=== PATIENT | male | born 1985 | race Caucasian/White ===

== ENCOUNTER 2019-04-04 06:54 | Emergency (ER) | payer BC, SELFPAY ==
--- NOTE | ~2019-04-04 | XR_ITS ---
XR chest 2V DATE: 04/04/2019 07:55 INDICATION: Anterior chest pain for 5 days. TECHNIQUE: PA and lateral views COMPARISON: None FINDINGS: Normal heart size. No hilar or mediastinal enlargement. No pulmonary infiltrate or consolid ation, pleural effusion or pulmonary vascular congestion or pneumothorax. IMPRESSION: No active cardiopulmonary disease Reviewed, dictated and finalized at location A. ALT PAVER OPERATOR
[2019-04-04 06:57] VITALS: BP 142/97; PULSE 80; RESP 21; TEMP 36.4; O2SAT 99
[2019-04-04 07:01] VITALS: PULSE 78; O2SAT 100
--- NOTE | 2019-04-04 07:05 | ECG_ITS ---
Measurements Intervals [place] Rate: 70 P: 28 VT: 136 QRS: -27 QRSD: 119 T: 5 QT: 380 QTc: 412 Interpretive Statements SINUS RHYTHM INTRAVENTRICULAR CONDUCTION DELAY DELAYED PRECORDIAL R/S TRANSITION BORDERLINE T WAVE ABNORMALITY- INFERIOR LEADS BASELINE ARTIFACT- II, III BORDERLINE ECG Electronically Signed On 04-04-2019 8:41:46 [employer] by Dat Quinn D.O.
--- NOTE | 2019-04-04 07:07 | ED.CHESTPAIN ---
HPI - Chest Pain General Chief Complaint: Chest Pain Stated Complaint: chest pain Time Seen by Provider: 04/04/19 06:58 Source: patient Mode of arrival: ambulatory Limitations: no limitations History of Present Illness HPI narrative: 33-year-old male Complains of precordial pains which have been present for a couple weeks Symptoms began before he traveled to [place] and have continued after he returned He notes that the pains are fleeting lasting a second or 2, sharp, and coming groups of 2 or 3 He cannot trigger them by movements respirations or exertion He is also had some soreness but no injury and no swelling to his right thigh No nausea or vomiting no palpitations no cough no fever This morning he also was experiencing upper back pain which is what brought him to the hospital He is currently pain-free He has a past medical history of mitral valve prolapse or regurgitation His primary care doctor is Dr. Wheeler at [facility] He is chronically prescribed Klonopin and as needed propranolol He smokes cigarettes, he is not diabetic, he has no history of elevated cholesterol He was treated for bronchitis about 2 months ago MD complaint: chest pain Pertinent past history: other Onset (ago): week(s) Timing of current episode: episodic and now resolved Pain radiation: other Severity: mild Quality: sharp Relieving factors: nothing Exacerbating factors: nothing Risk Factors Coronary artery disease risk factors: smoking history Related Data Home Medications Medication Instructions Recorded Confirmed buspirone 5 mg PO BID 02/28/19 02/28/19 clonazepam 0.5 mg PO DAILY 02/28/19 02/28/19 cyclobenzaprine 10 mg PO HS 02/28/19 02/28/19 propranolol 20 mg PO DAILY 02/28/19 02/28/19 Allergies Allergy/AdvReac Type Severity Reaction Status Date / Time meperidine Allergy Unknown Swelling Verified 04/04/19 07:01 of Lip/Tongue/Throat Review of Systems Review of Systems: All systems reviewed & are unremarkable except as noted in HPI and below Constitutional: Constitutional: Denies chills and Denies fever(s) Eyes: Eyes: Reports no additional eye complaints ENT: Denies nasal congestion and Denies sore throat Cardiovascular: Cardiovascular: Reports no additional cardiovascular complaints Respiratory: Respiratory: Reports no additional respiratory complaints Gastrointestinal: Gastrointestinal: Denies abdominal pain and Denies diarrhea Genitourinary: Genitourinary: Reports no additional male genitourinary complaints Musculoskeletal: Musculoskeletal: Reports myalgias and Reports muscle cramps Neurologic: Denies numbness and Denies weakness Psychiatric: Psychiatric: Reports anxiety Hematologic/Lymphatic: Hematologic/Lymphatic: Denies easy bleeding and Denies easy bruising PMFSH Family History Family History (Updated 03/15/18 @ 15:20 by DOCTOR UNKNOWN) Mother Family history of elevated blood lipids Other Diabetes mellitus Family history of arthritis Family history of osteoporosis Hypertension Social History Social History Smoking status: Heavy tobacco smoker Smoking end date: 03/06/14 Alcohol intake: current Exam Const: General: healthy appearing, no acute distress and well developed Nutritional Appearance: well nourished Orientation/consciousness: patient oriented x3 (alert) and Other orientation findings (Alert) Limitations: no limitations HENMT: Head: normocephalic and atraumatic Ears: external ears normal General nose exam: No nasal discharge present and no epistaxis Face and sinus: face symmetric Mouth: Yes lip normal, Yes tongue normal and Yes moist mucous membranes Throat: other (No exudate, no erythema) Eyes: Conjunctivae: conjunctivae normal Sclera: sclerae normal EOM: EOMs intact bilaterally Neck: Neck: full ROM, no lymphadenopathy and supple Thyroid: thyroid normal Chest: Chest palpation & inspection: no tenderness Resp: Effort & Ins
[2019-04-04 07:42] LABS: Basophils Percent Auto 0.7 % (0.2-1.2); Eosinophils Absolute Auto 0.2 K/mm3 (0-0.3); Eosinophils Percent Auto 3.9 % (0-4.4); Hematocrit 45.9 % (42.0-52.0); Hemoglobin 15.3 g/dL (14.0-18.0); Immature Granulocyte Absolute 0.04 K/mm3 (0.00-0.031); Immature Granulocyte Percent A 0.7 % (0-0.5); Lymphocytes Absolute Auto 1.71 K/mm3 (0.9-3.2); Lymphocytes Percent Auto 29.2 % (18.3-44.2); Mean Corpuscular HGB Conc 33.3 g/dl (32-36); Mean Corpuscular Hemoglobin 29.5 pg (26-34); Mean Corpuscular Volume 88.4 fl (80-100); Mean Platelet Volume 11.9 fl (7.4-10.4); Monocytes Absolute Auto 0.5 K/mm3 (0.1-0.6); Neutrophils Absolute Auto 3.3 K/mm3 (1.3-6.7); Neutrophils Percent Auto 56.5 % (45.5-73.1); Platelet Count Result 183 k/mm3 (150-375); Red Blood Count 5.19 M/mm3 (4.6-6.20); Red Cell Distribution Width 12.2 % (11.5-14.5); White Blood Count 5.9 K/mm3 (4.5-10.0)
[2019-04-04 07:53] LABS: Blood Urea Nitrogen 15 mg/dL (9-20); Calcium 9.1 mg/dL (8.4-10.2); Carbon Dioxide 24 mmol/L (22-30); Chloride 101 mmol/L (98-107); Estimated CRCL calculation 122 ml/min; Estimated Glomerular Filt Rate > 60; Glucose 117 mg/dL (75-110); Potassium 4.1 mmol/L (3.4-5.0); Sodium 137 mmol/L (137-145)
[2019-04-04 07:54] LABS: D Dimer 0.39 ug/mL (<0.48)
[2019-04-04 07:55] LABS: Cholesterol 198 mg/dL (0-200); HDL Direct 48 mg/dL; Triglycerides 232 mg/dL (<150)
[2019-04-04 08:05] LABS: LDL Cholesterol Direct 111 mg/dL; Troponin I < 0.012 ng/mL (0.000-0.034)
[2019-04-04] MEDS: KETOROLAC 30 MG/ML VIAL (*BKC) IV PUSH (08:17)
[2019-04-04 08:45] VITALS: BP 123/84; PULSE 76; RESP 19; O2SAT 97
== END 2019-04-04 08:47 | disposition home or self-care (01) ==
PROVIDERS: Emergency Provider Emergency Medicine
DX: R07.89 Other chest pain (principal); F17.210 Nicotine dependence, cigarettes, uncomplicated; I45.9 Conduction disorder, unspecified; R94.31 Abnormal electrocardiogram [ECG] [EKG]
CPT/HCPCS: 36415; 71046; 80048; 80061; 84484; 85025; 85380; 93005; 96374; 99284; J1885

== ENCOUNTER → 2019-05-02 14:29 | Outpatient (CLI) | payer BC, SELFPAY ==
--- NOTE | ~2019-05-02 | MR_ITS ---
EXAMINATION: MR lumbar spine wo con DATE: 05/02/2019 15:02 INDICATION: Chronic right-sided low back pain without sciatica. TECHNIQUE: Magnetic resonance imaging (MRI) of the lumbar spine was performed without intravenous con trast. Sequences included sagittal T2-weighted FSE, sagittal T2-weighted FS FSE, sagittal T1-weighted FSE, and axial T2-weighted FSE. COMPARISON: None FINDINGS: Bone alignment is normal. Vertebral body heights are normal. There is mildly decreased disc height at L5-S1. The distal spinal cord signal intensity is normal. The conus medullaris is at L2-L3 . The following disc levels are specifically discussed: L1-L2: The disc does not extend beyond the endplate margin. There is mild right facet joint osteoarth ritis. There is no neural foraminal stenosis. There is no central canal stenosis. L2-L3: The disc does not extend beyond the endplate margin. There is mild left facet joint osteoarthr itis. There is no neural foraminal stenosis. There is no central canal stenosis. L3-L4: The disc does not extend beyond the endplate margin. There is mild bilateral facet joint osteo arthritis. There is no neural foraminal stenosis. There is no central canal stenosis. L4-L5: The disc does not extend beyond the endplate margin. There is mild bilateral facet joint osteo arthritis. There is no neural foraminal stenosis. There is no central canal stenosis. L5-S1: There is a left central extrusion with mass effect on left S1 nerve root in left lateral reces s. There is no facet joint osteoarthritis. There is mild left neural foraminal stenosis. There is mil d central canal stenosis. IMPRESSION: 1. Mild lumbar spondylosis. Of note, an extrusion at L5-S1 exerts mass effect on the left S1 nerve ro ot. Correlate clinically for muscle weakness of plantar flexion, sensory change of the lateral foot a nd small toe, and depressed ankle reflex. Reviewed, dictated and finalized at location A. NG EXAMINER IMPRESSION: 1. Mild lumbar spondylosis. Of note, an extrusion at L5-S1 exerts mass effect o n the left S1 nerve root. Correlate clinically for muscle weakness of plantar f lexion, sensory change of the lateral foot and small toe, and depressed ankle r eflex.
== END ==
PROVIDERS: Visit Provider Family Medicine
DX: G89.29 Other chronic pain (principal); M47.896 Other spondylosis, lumbar region; M51.26 Other intervertebral disc displacement, lumbar region
CPT/HCPCS: 72148

== ENCOUNTER 2019-08-17 01:26 | Outpatient (CLI) | payer BC, SELFPAY ==
[2019-08-17 16:42] LABS: SARS-CoV-2 RNA PCR Negative
== END 2019-08-17 01:27 | disposition home or self-care (01) ==
LOC: ANHCOVIDDT 01:26
PROVIDERS: PCP Family Medicine; Visit Provider Internal Medicine Cardiovascular Disease
DX: Z20.828 Contact with and (suspected) exposure to other viral communicable diseases (principal); Z01.812 Encounter for preprocedural laboratory examination
CPT/HCPCS: 87635; C9803; U0003

== ENCOUNTER 2019-08-20 05:29 | Day surgery (SDC) | payer BC, SELFPAY ==
[2019-08-19 13:48] VITALS: BMI 32.6
[2019-08-20] VITALS (14 sets, daily range): BP systolic 110–152; BP diastolic 41–110; PULSE 83–105; RESP 13–22; TEMP 36.6–37.1; O2SAT 96–100
--- NOTE | 2019-08-20 07:48 | SUR.PREOP ---
0735-pt presents to the [facility] for a KATY. No distress noted. AOx3. Questions answered and verbalized understanding. Consent signed. PIV started. Will continue to monitor.
--- NOTE | 2019-08-20 09:24 | P.PCNTEE_ITS ---
KATY TransEsophageal Echocardiogram Date of procedure: 08/20/19 Indications: Evaluate for possible intracardiac mass as suspected on surface echocardiography from 08/07/2019 Image Quality: Adequate Findings: PROCEDURES PERFORMED: 1. Multiplane transesophageal echocardiography with color flow and Doppler assessment 2. Moderate sedation- CPT code 90900 SEDATION: Midazolam 1 mg, Propofol 100 milligram IV in divided doses; start time 0857 , stop time 0910 , total [id number] time 17 minutes; Donal Zavaleta RN was trained observer for moderate sedation. PROCEDURE: After obtaining informed consent, patient was brought to the chest Pain [facility]. She was given lidocaine gel, followed by 2 sprays of benzocaine spray. Bite block was placed. Patient was positioned in the left lateral position. After adequate sedationl, transesophageal scope was advanced and multiplanar transesophageal echocardiography was performed with and without color flow and Doppler assessment. Patient's vitals were monitored throughout the procedure. Patient had copious secretions through the procedure and required sections at multiple times. Patient had erythema in the oropharynx wit hout any overt bleeding after the KATY. There were no immediate major procedure related complications. LEFT VENTRICLE: Normal LV size, mild LVH, normal LV systolic function, ejection fraction 60-65%. RIGHT VENTRICLE: Normal size and systolic function LEFT ATRIUM: Normal atrial size. A prominent ridge of tissue is seen between the left atrial appendage and left superior pulmonary vein consistent with warfarin/coumadin ridge . No left atrial appendage thrombus. RIGHT ATRIUM: Normal size ATRIAL SEPTUM: Normal; no evidence of shunt on color Doppler. MITRAL VALVE: Normal structure, no significant mitral regurgitation. AORTIC VALVE: Normal structure, trileaflet, no stenosis or regurgitation. TRICUSPID VALVE: Normal structure, no significant TR. Unable to assess RVSP. PULMONIC VALVE: Not well visualized PERICARDIUM: Normal, no significant pericardial effusion AORTA: Normal root size RHYTHM: Sinus rhythm Conclusions: 1. Normal LV size, mild LVH, normal LV systolic function, ejection fraction 60-65%. 2. Prominent ridge of tissue between left atrial appendage and left superior pulmonary vein consistent with warfarin/Coumadin ridge . No definite mass is seen in the left atrium. No evidence of left atrial appendage thrombus. Normal interatrial septum without a shunt on color Doppler. 3. Normal Doppler with normal valve structure and function.
--- NOTE | 2019-08-20 09:24 | WPDHPUPDATE1 ---
History and Physical Update Update Date/Time: 08/20/19 09:24 History and Physical has been reviewed, including an updated exam of the patient. There are NO changes in the patient's condition. Risks, benefits, and alternatives have been discussed and questions answered. Patient agrees to proceed with procedure.
--- NOTE | 2019-08-20 09:24 | WPDMODSED ---
Moderate Sedation Note-Pt Data Patient Data Allergies Allergy/AdvReac Type Severity Reaction Status Date / Time meperidine Allergy Unknown Swelling Verified 04/04/19 07:01 of Lip/Tongue/Throat Home Medications Medication Instructions Recorded Confirmed Type clonazepam 0.5 mg PO DAILY 02/28/19 08/19/19 History cyclobenzaprine 10 mg PO HS 02/28/19 08/19/19 History cetirizine [Zyrtec] 10 mg PO DAILY 08/19/19 08/19/19 History hydrocodone-acetaminophen 1 tablet PO Q6H PRN 08/19/19 08/19/19 History pregabalin [Lyrica] 75 mg PO HS 08/19/19 08/19/19 History Sedation/Anesthesia: No previous sedation/anesthesia problems (including family history). [facility] Family History Family History (Updated 03/15/18 @ 15:20 by DOCTOR UNKNOWN) Mother Family history of elevated blood lipids Other Diabetes mellitus Family history of arthritis Family history of osteoporosis Hypertension Social History Social History Smoking status: Heavy tobacco smoker Smoking end date: 03/06/14 Alcohol intake: current Gender identity (if verbalized by the patient): Male Mod Sed Physical Exam Physical Exam Pre Procedural Exam: Normal: Airway Hours since solid foods: 10 Hours since liquid intake: 10 Internal Medicine - PN: Obj Da Vital Signs Vital Signs: Vital Signs - 24 hr 08/20/19 07:50 08/20/19 08:45 08/20/19 08:55 Temperature 36.6 C Pulse Rate 94 87 85 Respiratory Rate 14 13 16 Blood Pressure 131/87 121/81 119/80 Pulse Oximetry 99 98 98 08/20/19 09:00 08/20/19 09:05 08/20/19 09:10 Temperature Pulse Rate 87 105 H 91 Respiratory Rate 13 18 17 Blood Pressure 113/41 L 152/110 H 131/87 Pulse Oximetry 100 100 100 ASA Classification/Sedation ASA Classification/Sedation Risks: Risks, benefits and alternatives explained and patient/family accepted plan for sedation. Patient re-evaluated immediately prior to sedation.
--- NOTE | 2019-08-20 09:47 | SUR.PHASEII ---
0930 pt states that his throat feels funny;assessed back of throat and pts uvula is swollen and red. Dr. Starks notified and at bedside, per Dr. Starks give pt ice chips and continue to monitor closely.
--- NOTE | 2019-08-20 10:20 | SUR.PHASEII ---
1015 called and spoke with Edna Dias TRANSFORMER STOCK CLERK, update given that pts uvula/throat remains swollen and red. Pt tolerating ice chips well. She will speak with Dr. Starks and get back to me prior to discharging pt.
--- NOTE | 2019-08-20 11:22 | SUR.PHASEII ---
1100 spoke with Edna Dias SUPPORT MERCHANDISER, we will continue to monitor pt and his throat/uvula redness/swelling, pt in no other distress at this time except he states his throat is still sore. Will order pt lunch to assure he tolerates swallowing food ok and Dr. Starks will reassess pt later. 1120 Dr. Starks at bedside assessing pt, states his throat/uvula looks better and pt may be discharged after he eats and tolerates lunch.
== END 2019-08-20 12:15 | disposition home or self-care (01) ==
PROVIDERS: PCP Family Medicine; Visit Provider Internal Medicine Cardiovascular Disease
PROC: (CPT 93312; principal; 2019-08-20 08:30)
DX: R93.1 Abnormal findings on diagnostic imaging of heart and coronary circulation (principal); R07.2 Precordial pain; F17.210 Nicotine dependence, cigarettes, uncomplicated
CPT/HCPCS: 87635; 93312; 93320; 93325; C9803; J2250; J2704; J2930; J3010; J7040; U0003

== ENCOUNTER 2019-08-21 11:23 | Emergency (ER) | payer BC, SELFPAY ==
[2019-08-21 11:33] VITALS: BP 127/81; PULSE 81; RESP 16; O2SAT 98
--- NOTE | 2019-08-21 11:40 | ED.GENADULT ---
HPI - General Adult General Chief complaint: Unspecified Stated complaint: throat pain Source: patient and RN notes reviewed Mode of arrival: ambulatory Limitations: no limitations History of Present Illness HPI narrative: 33-year-old male presents with concern for sore throat, difficulty swallowing after undergoing a transesophageal echocardiogram yesterday. Reports after the procedure yesterday he had a sore throat which worsened throughout the night and day. Reports today pain is an 8 out of 10, has difficulty swallowing anything other than liquid. Reports he has been taking ibuprofen without relief. Denies hemoptysis, stridor, dyspnea. Related Data Home Medications Medication Instructions Recorded Confirmed clonazepam 0.5 mg PO DAILY 02/28/19 08/19/19 cyclobenzaprine 10 mg PO HS 02/28/19 08/19/19 Zyrtec 10 mg PO DAILY 08/19/19 08/19/19 hydrocodone-acetaminophen 1 tablet PO Q6H PRN 08/19/19 08/19/19 pregabalin [Lyrica] 75 mg PO HS 08/19/19 08/19/19 Allergies Allergy/AdvReac Type Severity Reaction Status Date / Time meperidine Allergy Unknown Swelling Verified 04/04/19 07:01 of Lip/Tongue/Throat Review of Systems Review of Systems: Narrative: CONSTITUTIONAL: Denies malaise, chills, sweats, or fever. ENT: Denies rhinorrhea, congestion, sinus pain, otalgia. Reports sore throat, swollen uvula, pain with swallowing, unable to swallow soft food CARDIOVASCULAR: Denies chest pain, palpitations, or edema. RESPIRATORY: Denies cough, stridor, wheezing, dyspnea. GASTROINTESTINAL: Denies abdominal pain, nausea, vomiting, diarrhea, hemoptysis MUSCULOSKELETAL: Denies myalgia. NEUROLOGIC: Denies headache. All systems reviewed & are unremarkable except as noted in HPI and below PMFSH Family History Family History (Updated 03/15/18 @ 15:20 by DOCTOR UNKNOWN) Mother Family history of elevated blood lipids Other Diabetes mellitus Family history of arthritis Family history of osteoporosis Hypertension Social History Social History Smoking status: Heavy tobacco smoker Smoking end date: 03/06/14 Alcohol intake: current Gender identity (if verbalized by the patient): Male Comments At time of signature, agree with nursing past medical, surgical, social and family history. There is no relevant family history pertinent to the presenting complaint Exam Narrative: Exam Narrative: GENERAL: Well-appearing, well-nourished, and in no acute distress. HEAD: Normocephalic EYES: PERRLA, conjunctivae clear ENT: Nares clear, no epistaxis. Mucous membranes moist. Oropharynx with erythematous, uvular pallor with an elongated, inflamed and anteriorly prolapsed uvula. Tonsils erythematous. No dysphonia NECK: Supple. No lymphadenopathy. No jugular venous distension, thyromegaly. Carotids were easily palpable bilaterally. CHEST: No respiratory distress. Clear to auscultation. No bony deformities, no asymmetry. Speaks in full sentences. HEART: Regular rate and rhythm. SKIN: Warm, dry, no rash. NEURO: Alert and oriented x3. PSYCH: Normal mood and affect Course Course Emergency Course: Contacted Dr. Starks for consultation, no callback received at this time from Dr. Carmona. Consulted Dr. Patten in the emergency room, Dr. Patten agrees to evaluate patient in the emergency room. Patient is stable for transfer via private vehicle. Patient is aware of, understands and agrees to treatment plan. Anticipatory guidance given. Patient agrees to proceed directly to the emergency department. Portions of this record may have been created with voice recognition software Reevaluation(s) Reevaluation #1: Patient reports no change in swelling after dexamethasone IM Date: 08/21/19 Time: 12:49 Vital Signs Vital signs: Vital Signs Pulse Rate 81 08/21/19 11:33 Respiratory Rate 16 08/21/19 11:33 Blood Pressure 127/81 08/21/19 11:33 Pulse Oximetry 98 08/21/19 11:33 Pulse Rate 81 08/21/19 11:33 Respira
--- NOTE | 2019-08-21 11:58 | PC.NURSE ---
dr. aissatou huntley office called at [phone] for further consultation by this rn and call transferred to car dispatcher who spoke with tessa.
== END 2019-08-21 13:00 | disposition short-term general hospital (02) ==
PROVIDERS: Emergency Provider Nurse Practitioner; PCP Family Medicine
DX: K13.79 Other lesions of oral mucosa (principal); Z98.890 Other specified postprocedural states; Z87.891 Personal history of nicotine dependence; F41.9 Anxiety disorder, unspecified
CPT/HCPCS: 96372; 99213; G0463; J1100

== ENCOUNTER 2019-08-21 13:22 | Emergency (ER) | payer BC, SELFPAY ==
--- NOTE | ~2019-08-21 | XR_ITS ---
EXAMINATION: XR chest 2V DATE: 08/21/2019 14:02 INDICATION: Dyspnea. TECHNIQUE: Frontal and lateral views of the chest were obtained. COMPARISON: Chest 2 views 04/04/2019 FINDINGS: The chest demonstrates clear lungs without pneumonia, pleural effusion, or pneumothorax. Th e heart size is normal. IMPRESSION: 1. No acute cardiopulmonary disease. Reviewed, dictated and finalized at location A.
--- NOTE | ~2019-08-21 | CT_ITS ---
EXAMINATION: CT soft tissue neck w con DATE: 08/21/2019 15:03 INDICATION: Throat pain. TECHNIQUE: Computed tomography (CT) of the neck was performed with 75 mL Omnipaque-350 intravenous co ntrast. Automated exposure control and iterative reconstruction technique were employed. The dose-darren gth product was 558.49 mGy-cm. COMPARISON: Cervical spine CT 08/19/2015 FINDINGS: There are no pathologically enlarged lymph nodes. The neck arteries are normal. The pharyng eal mucosal space and larynx are normal. There is mild mucosal thickening in the maxillary sinuses. T here is thoracic kyphosis and moderate spondylosis. IMPRESSION: 1. No etiology for the patient's symptoms. Reviewed, dictated and finalized at location A.
[2019-08-21 13:32] VITALS: BP 130/80; PULSE 70; RESP 16; TEMP 36.3; O2SAT 100
--- NOTE | 2019-08-21 13:53 | ED.RECABL ---
HPI - Recheck/Abnormal Lab/Rx General Chief Complaint: Recheck/Abnormal Lab/Rx Stated Complaint: UVULAR SWELLING S/P KATY Time Seen by Provider: 08/21/19 13:46 Source: RN notes reviewed History of Present Illness HPI narrative: Patient presents emergency department from urgent care for throat swelling. Patient states that he had a KATY performed yesterday by Dr. huntley rule out a mass on his heart. He states that he began to have throat pain last night with inability to swallow solid food secondary to pain. He states that he noted inflammation of his uvula with a line of erythema followed by some discoloration of his uvula he denies any fevers or chills shortness of breath chest pain or any other symptoms. Patient initially went to the urgent care where he was given a shot of Decadron referred to the emergency department for further evaluation Related Data Home Medications Medication Instructions Recorded Confirmed clonazepam 0.5 mg PO DAILY 02/28/19 08/19/19 cyclobenzaprine 10 mg PO HS 02/28/19 08/19/19 Zyrtec 10 mg PO DAILY 08/19/19 08/19/19 hydrocodone-acetaminophen 1 tablet PO Q6H PRN 08/19/19 08/19/19 pregabalin [Lyrica] 75 mg PO HS 08/19/19 08/19/19 Allergies Allergy/AdvReac Type Severity Reaction Status Date / Time meperidine Allergy Unknown Swelling Verified 08/21/19 14:20 of Lip/Tongue/Throat Review of Systems Review of Systems: Narrative: Gen.: Denies fevers or chills Eyes: Denies eye pain or visual change ENT: See HPI Respiratory: Denies shortness of breath or cough CV: Denies chest pain or palpitations GI: Denies abdominal pain nausea, emesis or diarrhea Musculoskeletal: Denies back pain or muscle pain Neuro: Denies numbness, tingling, weakness or focal weakness Skin: Denies rash Except as documented, all other systems reviewed and negative [facility] Family History Family History (Updated 03/15/18 @ 15:20 by DOCTOR UNKNOWN) Mother Family history of elevated blood lipids Other Diabetes mellitus Family history of arthritis Family history of osteoporosis Hypertension Social History Social History Smoking status: Heavy tobacco smoker Smoking end date: 03/06/14 Alcohol intake: current Gender identity (if verbalized by the patient): Male Exam Narrative: Exam Narrative: APPEARANCE: No acute distress, nontoxic, resting in bed EYES: EOMI HEENT: Normocephalic, atraumatic, OMM, airway patent, erythema of the bilateral tonsils that are 2+, the uvula is swollen and edematous there is a distinct line of erythema with some whitish discoloration distally, tolerating own secretions RESPIRATORY: No respiratory distress Clear to auscultation bilaterally with no rhonchi wheezing or rales. CARDIOVASCULAR: Regular rate and rhythm without murmurs rubs or gallops. ABDOMINAL: Soft, nontender, nondistended, no rebound or guarding MUSCULOSKELETAl: Moves all extremities. No clubbing, cyanosis or edema. NEURO: Awake and alert. Following commands, speech normal, no focal deficits SKIN:: Warm, dry. No rashes lesions or abrasions PSYCHIATRIC: Normal affect/mood, Course Course Emergency Course: Discussed with LEAD CARE MANAGER and Arun for Dr. huntley presentation work-up. This time recommends I discussed with Dr. bond for ENT Dr. Bond presentation work-up. Discussed concern of possible uvular necrosis. At this time the patient already received Decadron no other treatment at this time with follow-up as an outpatient Discussed with patient results of workup and diagnosis. Discussed need for follow-up with primary care, proper use of medication, and reasons to return to the emergency department. Patient understands and agrees to current treatment plan. I did discuss in length with patient about possible uvular necrosis that he was given steroids any follow-up with ENT Vital Signs Vital signs: Vital Signs Temperature 97.3 F L 08/21/19 13:32 Pulse Rate 70
[2019-08-21 14:40] LABS: Basophils Percent Auto 0.4 % (0.2-1.2); Eosinophils Absolute Auto 0.1 K/mm3 (0-0.3); Eosinophils Percent Auto 0.9 % (0-4.4); Hematocrit 43.4 % (42.0-52.0); Hemoglobin 14.7 g/dL (14.0-18.0); Immature Granulocyte Absolute 0.06 K/mm3 (0.00-0.031); Immature Granulocyte Percent A 0.6 % (0-0.5); Lymphocytes Absolute Auto 0.99 K/mm3 (0.9-3.2); Lymphocytes Percent Auto 10.4 % (18.3-44.2); Mean Corpuscular HGB Conc 33.9 g/dl (32-36); Mean Corpuscular Hemoglobin 29.8 pg (26-34); Mean Corpuscular Volume 87.9 fl (80-100); Mean Platelet Volume 12.3 fl (7.4-10.4); Monocytes Absolute Auto 0.4 K/mm3 (0.1-0.6); Neutrophils Absolute Auto 7.9 K/mm3 (1.3-6.7); Neutrophils Percent Auto 83.7 % (45.5-73.1); Platelet Count Result 189 k/mm3 (150-375); Red Blood Count 4.94 M/mm3 (4.6-6.20); Red Cell Distribution Width 11.9 % (11.5-14.5); White Blood Count 9.5 K/mm3 (4.5-10.0)
[2019-08-21 14:47] LABS: Blood Urea Nitrogen 14 mg/dL (9-20); Calcium 8.7 mg/dL (8.4-10.2); Carbon Dioxide 24 mmol/L (22-30); Chloride 103 mmol/L (98-107); Estimated CRCL calculation 120 ml/min; Estimated Glomerular Filt Rate > 60; Glucose 98 mg/dL (75-110); Potassium 4.2 mmol/L (3.4-5.0); Sodium 134 mmol/L (137-145)
[2019-08-21 16:10] VITALS: BP 148/90; PULSE 88; RESP 18; O2SAT 97
== END 2019-08-21 16:11 | disposition home or self-care (01) ==
PROVIDERS: Emergency Provider Emergency Medicine; PCP Family Medicine
DX: K13.79 Other lesions of oral mucosa (principal); Z87.891 Personal history of nicotine dependence; Z98.890 Other specified postprocedural states
CPT/HCPCS: 36415; 70491; 71046; 80048; 85025; 96372; 99284; J1100; Q9967

== ENCOUNTER 2020-07-12 15:47 | Emergency (ER) | payer BC, SELFPAY ==
--- NOTE | ~2020-07-12 | XR_ITS ---
EXAMINATION: XR chest 2V DATE: 07/12/2020 16:39 INDICATION: Shortness of breath. TECHNIQUE: Frontal and lateral views of the chest were obtained. COMPARISON: Chest 2 views 08/21/2019 FINDINGS: The chest demonstrates clear lungs without pneumonia, pleural effusion, or pneumothorax. Th e heart size is normal. IMPRESSION: 1. No acute cardiopulmonary disease. Reviewed, dictated and finalized at location A.
[2020-07-12 16:13] VITALS: BP 155/94; PULSE 93; RESP 17; TEMP 36.3; O2SAT 100
--- NOTE | 2020-07-12 16:13 | ECG_ITS ---
Measurements Intervals [place] Rate: 83 P: 35 ND: 145 QRS: -28 QRSD: 103 T: 28 QT: 370 QTc: 436 Interpretive Statements SINUS RHYTHM BORDERLINE R WAVE PROGRESSION, ANTERIOR LEADS BORDERLINE ECG Electronically Signed On 07-12-2020 16:46:52 CDT by Dat Quinn D.O.
--- NOTE | 2020-07-12 16:25 | ED.ARRPALP ---
HPI - Arrhythmia/Palpitations General Chief Complaint: Arrhythmia/Palpitations Stated Complaint: Pulse Increases Time Seen by Provider: 07/12/20 16:12 Source: patient Mode of arrival: ambulatory Limitations: no limitations History of Present Illness HPI narrative: This is a 34 year old male that presents to the ER for episodes of palpitations. Present over the last couple of days. Reports it feels like he has trouble catching his breath, then he fees like his heart is skipping a beat. Reports some left sided chest pain that is a constant dull ache. Denies fever, cough, or lower extremity edema. Related Data Home Medications Medication Instructions Recorded Confirmed clonazepam 0.5 mg PO DAILY 02/28/19 08/19/19 Zyrtec 10 mg PO DAILY 08/19/19 08/19/19 Allergies Allergy/AdvReac Type Severity Reaction Status Date / Time meperidine Allergy Unknown Swelling Verified 07/12/20 16:12 of Lip/Tongue/Throat Review of Systems Review of Systems: Narrative: CONSTITUTIONAL: Denies fever CARDIOVASCULAR: Reports chest pain, palpitations. Denies edema. RESPIRATORY: Reports dyspnea. Denies cough All systems reviewed & are unremarkable except as noted in HPI and below PMFSH Past Medical History Medical History (Updated 07/12/20 @ 18:15 by July Bolton PA-C) History of anxiety Family History Family History Mother Family history of elevated blood lipids Other Diabetes mellitus Family history of arthritis Family history of osteoporosis Hypertension Social History Social History Smoking status: Heavy tobacco smoker Smoking end date: 03/06/14 Alcohol intake: current Gender identity (if verbalized by the patient): Male Exam Narrative: Exam Narrative: GENERAL: Well-appearing, well-nourished, and in no acute distress. HEAD: Normocephalic, atraumatic. EYES: EOMI. ENT: Mucous membranes moist. Oropharynx without tonsillar hypertrophy exudate or other lesions. NECK: Supple. No adenopathy or masses. No carotid bruits or JVD CHEST: Clear to auscultation. No respiratory distress. No wheezes rales or rhonchi. Tender to palpation of the left lateral chest wall HEART: Regular rate and rhythm. No murmur heard. Normal peripheral pulses. EXTREMITIES: Normal range of motion. No edema. SKIN: Warm, dry, no rash. NEURO: No focal deficits. Alert and oriented x3. PSYCH: Normal mood and affect Course Vital Signs Vital signs: Vital Signs Temperature 97.3 F L 07/12/20 16:13 Pulse Rate 93 07/12/20 16:13 Respiratory Rate 17 07/12/20 16:13 Blood Pressure 155/94 H 07/12/20 16:13 Pulse Oximetry 100 07/12/20 16:13 Temperature 97.3 F L 07/12/20 16:13 Pulse Rate 93 07/12/20 16:13 Respiratory Rate 17 07/12/20 16:13 Blood Pressure 155/94 H 07/12/20 16:13 Pulse Oximetry 100 07/12/20 16:13 MDM - Arrhythmia/Palpitations MDM Narrative Medical decision making narrative: Patient presents the emergency department for feelings of palpitations and shortness of breath over the last couple of days. Symptoms do seem consistent with possible anxiety. He is afebrile and nontoxic-appearing. Vitals are stable. CBC and metabolic panel without concerning findings. EKG without concerning changes and baseline troponin is negative. Chest x-ray without acute cardiopulmonary abnormality. Did report some left lateral chest pain, patient is tender palpation in the area. Seems to be more musculoskeletal in nature. PERC criteria is negative. Patient was updated on case findings. Patient is stable and felt appropriate for further outpatient evaluation. He was instructed to follow-up with his primary care doctor. He was given warnings to return to the ER Lab Data Attestation: I reviewed the patient's lab results. Result diagrams: 07/12/20 17:03 07/12/20 17:03 Labs: Lab Results
[2020-07-12 17:11] LABS: Basophils Absolute Auto 0.1 K/mm3 (0.0-0.1); Basophils Percent Auto 0.6 % (0.2-1.2); Eosinophils Absolute Auto 0.3 K/mm3 (0-0.3); Eosinophils Percent Auto 3.1 % (0-4.4); Hematocrit 46.1 % (42.0-52.0); Hemoglobin 15.5 g/dL (14.0-18.0); Immature Granulocyte Absolute 0.05 K/mm3 (0.00-0.031); Immature Granulocyte Percent A 0.6 % (0-0.5); Lymphocytes Absolute Auto 2.01 K/mm3 (0.9-3.2); Mean Corpuscular HGB Conc 33.6 g/dl (32-36); Mean Corpuscular Hemoglobin 29.6 pg (26-34); Mean Corpuscular Volume 88.1 fl (80-100); Mean Platelet Volume 12.1 fl (7.4-10.4); Monocytes Absolute Auto 0.8 K/mm3 (0.1-0.6); Monocytes Percent Auto 9.8 % (2.6-8.5); Neutrophils Absolute Auto 4.9 K/mm3 (1.3-6.7); Neutrophils Percent Auto 60.9 % (45.5-73.1); Platelet Count Result 228 k/mm3 (150-375); Red Blood Count 5.23 M/mm3 (4.6-6.20); White Blood Count 8.1 K/mm3 (4.5-10.0)
[2020-07-12 17:19] LABS: Prothrombin Time 13.8 Seconds (11.1-14.7)
[2020-07-12 17:20] LABS: Alanine Aminotransferase 29 U/L (4-50); Albumin Level 4.3 g/dL (3.5-5.1); Alkaline Phosphatase 60 U/L (38-126); Anion Gap 7 mmol/L (8-16); Aspartate Amino Transferase 27 U/L (17-59); Bilirubin,Total 0.2 mg/dL (0.2-1.3); Blood Urea Nitrogen 16 mg/dL (9-20); Calcium 9.2 mg/dL (8.4-10.2); Carbon Dioxide 26 mmol/L (22-30); Chloride 105 mmol/L (98-107); Estimated CRCL calculation 92 ml/min; Estimated Glomerular Filt Rate > 60; Glucose 107 mg/dL (75-110); Sodium 138 mmol/L (137-145)
[2020-07-12 17:31] LABS: Troponin I < 0.012 ng/mL (0.000-0.034)
[2020-07-12 18:13] VITALS: BP 142/84; PULSE 74; RESP 18; O2SAT 98
== END 2020-07-12 18:20 | disposition home or self-care (01) ==
PROVIDERS: Physician Assistant; Emergency Provider Emergency Medicine; PCP Family Medicine
DX: R00.2 Palpitations (principal); F41.9 Anxiety disorder, unspecified; Z87.891 Personal history of nicotine dependence; R94.31 Abnormal electrocardiogram [ECG] [EKG]
CPT/HCPCS: 36415; 71046; 80053; 83735; 84484; 85025; 85610; 85730; 93005; 99284

== ENCOUNTER 2021-01-24 12:11 | Emergency (ER) | payer BC, SELFPAY ==
--- NOTE | 2021-01-24 12:16 | ED.SKABFB ---
HPI - Skin/Abscess/Foreign Bdy General Chief complaint: Skin/Abscess/Foreign Body Stated complaint: Rash bilateral wrists Time Seen by Provider: 01/24/21 12:51 Source: patient and RN notes reviewed Mode of arrival: ambulatory Limitations: no limitations History of Present Illness HPI narrative: 35-year-old male presents with concern for reaction at surgical site. He reports he had carpal tunnel surgery on the right wrist in December and on the left wrist approximately 10 days ago. Reports the reaction started at the left wrist which was the most recent surgical site with swelling, redness, itching, he reports an incision site on the palm of the hand that is swollen and tender with slight discoloration. Reports the oldest surgical site became red and slightly swollen. Reports the worse redness is on the left, newer site. Reports he is used hydrocortisone cream with no relief. He denies drainage from the areas, fever, body aches, chills, general malaise. MD complaint: rash Related Data Home Medications Medication Instructions Recorded Confirmed clonazepam 0.5 mg PO DAILY 01/24/21 01/24/21 propranolol 10 mg PO DAILY 01/24/21 01/24/21 Allergies Allergy/AdvReac Type Severity Reaction Status Date / Time meperidine Allergy Severe Swelling Verified 01/24/21 12:41 of Lip/Tongue/Throat Review of Systems Review of Systems: CONSTITUTIONAL: Denies malaise, chills, sweats, or fever. SKIN: Reports redness, swelling, itching and tenderness to surgical sites MUSCULOSKELETAL: Denies joint pain or myalgia. Denies decrease sensation, strength, range of motion NEUROLOGIC: Denies numbness, weakness All systems reviewed & are unremarkable except as noted in HPI and below PMFSH Past Medical History Medical History (Updated 01/24/21 @ 12:59 by Brit Ambriz NP) History of anxiety Family History Family History Mother Family history of elevated blood lipids Other Diabetes mellitus Family history of arthritis Family history of osteoporosis Hypertension Social History Social History Smoking status: Heavy tobacco smoker Smoking end date: 03/06/14 Alcohol intake: current Gender identity (if verbalized by the patient): Male Comments At time of signature, agree with nursing past medical, surgical, social and family history. There is no relevant family history pertinent to the presenting complaint Exam Narrative: GENERAL: Well-appearing, well-nourished, and in no acute distress. HEAD: Normocephalic, atraumatic. EYES: PERRLA, conjunctivae clear, and EOMI. ENT: Mucous membranes moist. Oropharynx without edema, erythema or lesions. NECK: Supple. No lymphadenopathy CHEST: Clear to auscultation. No respiratory distress. HEART: Regular rate and rhythm. SKIN: Warm, dry. 4 cm x 5 cm area of erythema, induration, swelling noted around the left dorsal wrist surgical site, left dorsal hand surgical site slightly edematous, not well approximated, erythematous. Right wrist surgical site has 1 cm of erythema, induration, edema. NEURO: Alert and oriented x3. PSYCH: Normal mood and affect Course Course Emergency Course: Patient is aware of diagnosis, understands and agrees to treatment plan. Anticipatory guidance given. Patient agrees to follow-up as directed and is aware of reasons to seek care at the emergency department. Portions of this record may have been created with voice recognition software Vital Signs Vital signs: Reviewed. MDM - Skin/Abscess/Foreign Bdy MDM Narrative Medical decision making narrative: Exam findings show no acute concerns or changes; patient is non-toxic appearing and is in no distress. Patient is appropriate for outpatient treatment and follow-up. Differential Diagnosis Differential diagnosis: Likely abscess of skin or subcutaneous tissue, cellulitis, impetigo, contact dermatitis and o
[2021-01-24 12:28] VITALS: BP 115/92; PULSE 93; RESP 18; TEMP 36.8; O2SAT 98
== END 2021-01-24 13:01 | disposition home or self-care (01) ==
PROVIDERS: Emergency Provider Nurse Practitioner; PCP Family Medicine
DX: T81.9XXA Unspecified complication of procedure, initial encounter (principal); F17.200 Nicotine dependence, unspecified, uncomplicated; F41.9 Anxiety disorder, unspecified
CPT/HCPCS: 99213; G0463

== ENCOUNTER 2021-10-26 13:11 | Emergency (ER) | payer BC, SELFPAY ==
--- NOTE | ~2021-10-26 | CT_ITS ---
EXAMINATION: CT abdomen pelvis wo con DATE: 10/26/2021 14:29 INDICATION: 3 days of back pain TECHNIQUE: Computed tomography (CT) of the abdomen and pelvis was performed without intravenous contr ast. Automated exposure control and iterative reconstruction technique were employed. The dose-length product was 763.80 mGy-cm. COMPARISON: None FINDINGS: Lung bases are clear. Heart size is normal. No pericardial or pleural effusion. Liver, gallbladder, s pleen, pancreas, bilateral adrenal glands and left kidney are normal. 1 mm nonobstructing stone at th e lower pole of the right kidney. No ureteral stones or hydronephrosis. The latter is normal. Bowels including the appendix are normal. No free intraperitoneal gas or fluid. No pathologically enlarged a bdominal or pelvic lymphadenopathy. Mild thoracic and lumbar spondylosis. A few small bone islands in the pelvis and proximal femurs. IMPRESSION: 1. Obstructing 1 mm right renal stone. Reviewed, dictated and finalized at location A.
[2021-10-26 13:30] VITALS: BP 136/88; PULSE 103; RESP 16; TEMP 37.1; O2SAT 100
--- NOTE | 2021-10-26 13:41 | ED.BACK ---
HPI - Back Pain/Injury General Chief Complaint: Back Pain/Injury Stated Complaint: back pain Time Seen by Provider: 10/26/21 13:36 History of Present Illness HPI Narrative: 36-year-old male presents to the ER today for right flank pain that radiates around to his right abdomen. He says that the pain started on Monday and has persisted into today. He has not been able to get out of bed for the past couple of days. He tried to go to work today but he is having severe spasms in his back and hurts with any movement. He denies any dysuria or hematuria. No nausea or vomiting, no fever or chills. Related Data Home Medications Medication Instructions Recorded Confirmed clonazepam 0.5 mg tablet 0.5 mg PO DAILY 01/24/21 01/24/21 propranolol 10 mg tablet 10 mg PO DAILY 01/24/21 01/24/21 Allergies Allergy/AdvReac Type Severity Reaction Status Date / Time meperidine Allergy Severe Swelling Verified 01/24/21 12:41 of Lip/Tongue/Throat Review of Systems Review of Systems: CONSTITUTIONAL: Denies fever, chills, or sweats. EYES: Denies visual changes, redness, or discharge. ENT: Denies rhinorrhea, congestion, sore throat, or otalgia. CARDIOVASCULAR: Denies chest pain, palpitations, or edema. RESPIRATORY: Denies cough or dyspnea. GASTROINTESTINAL: Denies abdominal pain, nausea, vomiting, or diarrhea. GENITOURINARY: Denies dysuria or hematuria. SKIN: Denies rash or itching. MUSCULOSKELETAL: As per HPI NEUROLOGIC: Denies headache, numbness, dizziness, or weakness. PSYCHIATRIC: Denies anxiety or depression. PMFSH Past Medical History Medical History History of anxiety Family History Family History Mother Family history of elevated blood lipids Other Diabetes mellitus Family history of arthritis Family history of osteoporosis Hypertension Social History Social History Smoking status: Heavy tobacco smoker Smoking end date: 03/06/14 Alcohol intake: current Gender identity (if verbalized by the patient): Male Exam Narrative: GENERAL: Well-appearing, well-nourished, and in no acute distress. HEAD: Normocephalic, atraumatic. EYES: PERRLA and EOMI. ENT: Nares clear, no rhinorrhea or epistaxis. Mucous membranes moist. Oropharynx without tonsillar hypertrophy exudate or other lesions. Bilateral TMs pearly balderas nonbulging NECK: Supple. No adenopathy or masses. No carotid bruits or JVD CHEST: Clear to auscultation. No respiratory distress. No wheezes rales or rhonchi HEART: Regular rate and rhythm. No murmur heard. Normal peripheral pulses. ABDOMEN: Soft, nontender, nondistended, normal active bowel sounds. Back: no CVAT, limited ROM due to pain EXTREMITIES: Normal range of motion. No edema. SKIN: Warm, dry, no rash. NEURO: No focal deficits. Alert and oriented x3. PSYCH: Normal mood and affect. Course Vital Signs Vital signs: Vital Signs Temperature 37.1 C 10/26/21 13:30 Pulse Rate 103 H 10/26/21 13:30 Respiratory Rate 16 10/26/21 13:30 Blood Pressure 136/88 10/26/21 13:30 Pulse Oximetry 100 10/26/21 13:30 Oxygen Delivery Room Air 10/26/21 13:30 Temperature 37.1 C 10/26/21 13:30 Pulse Rate 103 H 10/26/21 13:30 Respiratory Rate 16 10/26/21 13:30 Blood Pressure 136/88 10/26/21 13:30 Pulse Oximetry 100 10/26/21 13:30 Oxygen Delivery Room Air 10/26/21 13:30 MDM - Back Pain/Injury Lab Data Attestation: I reviewed the patient's lab results. Result diagrams: 10/26/21 14:02 10/26/21 14:02 Labs: Lab Results 10/26/21 10/26/21 10/26/21 Range/Units 14:02 14:02 14:03 WBC 6.7 (4.5-10.0) K/mm3 RBC 4.94 (4.6-6.20) M/mm3 Hgb 14.6 (14.0-18.0) g/dL Hct 43.6 (42.0-52.0) % MCV 88.3 (80-100) fl MCH 29.6 (26-34) pg MCHC 33
[2021-10-26] MEDS: CYCLOBENZAPRINE HCL 10 MG TABLET PO (14:08)
[2021-10-26 14:09] LABS: Basophils Percent Auto 0.6 % (0.2-1.2); Eosinophils Absolute Auto 0.2 K/mm3 (0-0.3); Eosinophils Percent Auto 2.2 % (0-4.4); Hematocrit 43.6 % (42.0-52.0); Hemoglobin 14.6 g/dL (14.0-18.0); Immature Granulocyte Absolute 0.04 K/mm3 (0.00-0.031); Immature Granulocyte Percent A 0.6 % (0-0.5); Lymphocytes Absolute Auto 1.45 K/mm3 (0.9-3.2); Lymphocytes Percent Auto 21.7 % (18.3-44.2); Mean Corpuscular HGB Conc 33.5 g/dl (32-36); Mean Corpuscular Hemoglobin 29.6 pg (26-34); Mean Corpuscular Volume 88.3 fl (80-100); Mean Platelet Volume 11.6 fl (7.4-10.4); Monocytes Absolute Auto 0.5 K/mm3 (0.1-0.6); Monocytes Percent Auto 7.2 % (2.6-8.5); Neutrophils Absolute Auto 4.5 K/mm3 (1.3-6.7); Neutrophils Percent Auto 67.7 % (45.5-73.1); Platelet Count Result 206 k/mm3 (150-375); Red Blood Count 4.94 M/mm3 (4.6-6.20); Red Cell Distribution Width 11.9 % (11.5-14.5); White Blood Count 6.7 K/mm3 (4.5-10.0)
[2021-10-26 14:11] LABS: Appearance Urine Clear (Clear); Bilirubin Urine Negative (Negative); Blood Urine Negative (Negative); Color Urine Yellow (Yellow); Glucose Urine UA Negative (Negative); Ketones Urine Negative (Negative); Leukocyte Esterase Ur Negative LEU/UL (Negative); Nitrate Urine Negative (Negative); Protein Urine Negative (Negative); Specific Grav Ur 1.025 (1.001-1.035)
[2021-10-26 14:23] LABS: Alanine Aminotransferase 29 U/L (6-50); Albumin Level 4.3 g/dL (3.5-5.1); Alkaline Phosphatase 62 U/L (38-126); Anion Gap 10 mmol/L (8-16); Aspartate Amino Transferase 26 U/L (17-59); Bilirubin,Total 0.3 mg/dL (0.2-1.3); Blood Urea Nitrogen 15 mg/dL (9-20); Calcium 8.9 mg/dL (8.4-10.2); Carbon Dioxide 25 mmol/L (22-30); Chloride 103 mmol/L (98-107); Estimated CRCL calculation 103 ml/min; Estimated Glomerular Filt Rate > 60; Glucose 105 mg/dL (65-110); Potassium 3.9 mmol/L (3.4-5.0); Sodium 138 mmol/L (137-145)
[2021-10-26 14:51] LABS: Add Urine Microscopic? NO
== END 2021-10-26 15:42 | disposition home or self-care (01) ==
PROVIDERS: Emergency Provider Nurse Practitioner Family; PCP Family Medicine
DX: M54.50 Low back pain, unspecified (principal); F41.9 Anxiety disorder, unspecified; Z87.891 Personal history of nicotine dependence; N20.0 Calculus of kidney
CPT/HCPCS: 36415; 74176; 80053; 81003; 85025; 99284; A9270

== ENCOUNTER → 2022-05-06 07:53 | Outpatient (CLI) | payer BC, SELFPAY ==
--- NOTE | ~2022-05-06 | MR_ITS ---
MRI of the brain Clinical History: Migraine Technique: Axial and sagittal T1-weighted images were acquired. These were followed by axial T2-weigh kelvin, diffusion weighted, gradient, and FLAIR images. Following intravenous administration of 15 cc Mu ltiHance gadolinium, T1-weighted fat-sat imaging was performed in the axial and coronal planes. Findings: There is no abnormal signal in the brain parenchyma. No acute infarct, intracranial hemorrh age, or mass lesion. Ventricles and subarachnoid spaces are unremarkable. Orbits are unremarkable. There is bilateral maxi llary sinus disease. There is minimal sinus disease the right ethmoid air cells. Remaining paranasal sinuses and mastoid air cells are clear. Major intracranial flow voids appear intact. Sagittal midline structures are intact. No abnormal postcontrast enhancement identified. IMPRESSION: No intracranial abnormality. Sinus disease, as above. Reviewed, dictated and finalized at [facility]. STONE CARVER
== END ==
PROVIDERS: PCP Family Medicine; Visit Provider Family Medicine
DX: G43.109 Migraine with aura, not intractable, without status migrainosus (principal); J32.9 Chronic sinusitis, unspecified
CPT/HCPCS: 70553; A9577

== ENCOUNTER → 2022-09-13 10:29 | Outpatient (CLI) | payer BC, SELFPAY ==
--- NOTE | ~2022-09-13 | US_ITS ---
Limited Abdominal Sonogram: Real-time sonographic imaging of the right upper quadrant was performed. Clinical History: Right upper quadrant pain Findings: The liver appears normal with no evidence of mass lesion or bile duct dilatation. Main por ramon vein demonstrates normal direction of flow. The gallbladder is well distended, and appears normal with no evidence of gallstone or wall thickening. The common bile duct measures 3 mm. The visualize d pancreas, aorta, and IVC are unremarkable. Right kidney measures 10.7 cm in length, without evidenc e for hydronephrosis. Impression: No significant abnormality seen. Reviewed, dictated and finalized at location . Impression: No significant abnormality seen.
== END ==
PROVIDERS: PCP Family Medicine; Visit Provider Family Medicine
DX: R10.11 Right upper quadrant pain (principal)
CPT/HCPCS: 76705

== ENCOUNTER 2022-09-28 12:31 | Emergency (ER) | payer BC, SELFPAY ==
--- NOTE | ~2022-09-28 | XR_ITS ---
EXAMINATION: XR ankle RT min 3V DATE: 09/28/2022 13:15 INDICATION: Posterior and medial right ankle pain post twisting injury TECHNIQUE: Anteroposterior, oblique, mortise, and lateral views of the right ankle were obtained. COMPARISON: None. FINDINGS: Alignment is normal. Tiny heterotopic ossicle projecting over the medial clear space on the AP projec tion without evident donor site likely sequela of an earlier chronic deltoid ligament sprain. No frac ture. Joint spaces are well maintained. No ankle joint effusion. Mild soft tissue swelling about the lateral malleolus. IMPRESSION: 1. No acute osseous abnormality. Reviewed, dictated and finalized at location A.
[2022-09-28 12:34] VITALS: BP 134/84; PULSE 104; RESP 16; TEMP 36.9; O2SAT 99
--- NOTE | 2022-09-28 12:35 | ED.LOWEXIN ---
HPI - Extremity Injury (Lower) General Chief Complaint: Extremity Injury, Lower Stated Complaint: rt ankle injury Time Seen by Provider: 09/28/22 12:44 Source: patient and RN notes reviewed Mode of arrival: ambulatory Limitations: no limitations History of Present Illness HPI Narrative: 36 year old male presents with concern forright ankle pain. Reports he twisted his ankle this morning while mowing the grass. He reports circumferential pain to the ankle. Denies bruising or swelling MD complaint: ankle injury Related Data Home Medications Medication Instructions Recorded Confirmed clonazepam 0.5 mg tablet 0.5 mg PO DAILY 01/24/21 09/28/22 propranolol 10 mg tablet 10 mg PO DAILY 01/24/21 09/28/22 fluticasone propionate 93 93 mcg intranasal DIRECTED 09/28/22 09/28/22 mcg/actuation breath activated aerosol (Xhance) Allergies Allergy/AdvReac Type Severity Reaction Status Date / Time meperidine Allergy Severe Swelling Verified 01/24/21 12:41 of Lip/Tongue/Throat Review of Systems Review of Systems: CONSTITUTIONAL: Denies malaise, chills, sweats, or fever. SKIN: Denies rash or itching, open skin, laceration, abrasion, redness, warmth, swelling. MUSCULOSKELETAL: Reports right ankle pain NEUROLOGIC: Denies numbness, weakness All systems reviewed & are unremarkable except as noted in HPI and below PMFSH Past Medical History Medical History History of anxiety Family History Family History Mother Family history of elevated blood lipids Other Diabetes mellitus Family history of arthritis Family history of osteoporosis Hypertension Social History Social History Smoking status: Heavy tobacco smoker Smoking end date: 03/06/14 Alcohol intake: current Gender identity (if verbalized by the patient): Male Comments At time of signature, agree with nursing past medical, surgical, social and family history. There is no relevant family history pertinent to the presenting complaint Exam Narrative: GENERAL: Well-appearing, well-nourished, and in no acute distress. HEAD: Normocephalic, atraumatic. EYES: PERRLA, conjunctivae clear NECK: Supple. CHEST: Speaks in full sentences. No respiratory distress. HEART: Regular rate and rhythm. Normal and equal peripheral pulses. EXTREMITIES: Right ankle, foot, digits have grossly normal strength and sensation, grossly normal range of motion. No edema or ecchymosis. Normal sensation with sensitivity to light touch and pain. No point tenderness. No open wounds, no skin tenting, no devitalized tissue or atrophy, no trophic changes, no obvious deformity, alignment normal, nearby joints and structures intact. Distal pulses palpable and equal bilaterally, skin warm, dry, pink. Capillary refill less than 3 seconds. SKIN: Warm, dry, no rash. NEURO: Alert and oriented x3. PSYCH: Normal mood and affect Course Course Emergency Course: Patient is aware of diagnosis, understands and agrees to treatment plan. Anticipatory guidance given. Patient agrees to follow-up as directed and is aware of reasons to seek care at the emergency department. Portions of this record may have been created with voice recognition software Level of Care: Express Care Visit Vital Signs Vital signs: Reviewed. MDM - Extremity Injury (Lower) MDM Narrative Medical decision making narrative: Patients injury and pain is consistent with musculoskeletal etiology. No signs of neurological or vascular compromise on exam. Compartments and tissues are soft without signs of compartment syndrome. Pain is felt appropriate for further evaluation on an outpatient basis. Imaging Data My impression: Images reviewed, interpreted by radiologist, agree, see report. Radiologist's impression: EXAMINATION: XR ankle RT
== END 2022-09-28 13:30 | disposition home or self-care (01) ==
PROVIDERS: Emergency Provider Nurse Practitioner; PCP Family Medicine
DX: S93.401A Sprain of unspecified ligament of right ankle, initial encounter (principal); S96.911A Strain of unspecified muscle and tendon at ankle and foot level, right foot, initial encounter; X50.9XXA Other and unspecified overexertion or strenuous movements or postures, initial encounter; F41.9 Anxiety disorder, unspecified; Z87.891 Personal history of nicotine dependence
CPT/HCPCS: 73610; 99213; G0463

== ENCOUNTER 2023-01-02 07:32 | Outpatient (CLI) | payer BC, SELFPAY ==
--- NOTE | ~2023-01-02 | MR_ITS ---
EXAMINATION: MR lumbar spine wo con DATE: 01/02/2023 08:08 INDICATION: Low back pain. Pain in the legs, right worse than left. TECHNIQUE: Magnetic resonance imaging (MRI) of the lumbar spine was performed without intravenous con trast. Sequences included sagittal T2-weighted FSE, sagittal T2-weighted FS FSE, sagittal T1-weighted FSE, and axial T2-weighted FSE. COMPARISON: Lumbar spine MRI 05/02/2019 FINDINGS: Bone alignment is normal. There is mild chronic anterior wedging of T11-L1 vertebral bodies . There is mildly decreased disc height at L1-L2 and L5-S1. The distal spinal cord signal intensity i s normal. The conus medullaris is at L2-L3. The following disc levels are specifically discussed: L1-L2: The disc is bulging. There is no facet joint osteoarthritis. There is mild left neural foramin al stenosis. There is mild central canal stenosis. L2-L3: The disc does not extend beyond the endplate margin. There is mild left facet joint osteoarthr itis. There is no neural foraminal stenosis. There is no central canal stenosis. L3-L4: There is a left foraminal protrusion. There is mild bilateral facet joint osteoarthritis. Ther e is mild left neural foraminal stenosis. There is no central canal stenosis. L4-L5: The disc is mildly bulging. There is mild bilateral facet joint osteoarthritis. There is mild bilateral neural foraminal stenosis. There is no central canal stenosis. L5-S1: There is a left central extrusion that abuts the left S1 nerve root in left lateral recess. Th ere is mild bilateral facet joint osteoarthritis. There is mild left neural foraminal stenosis. There is mild central canal stenosis. IMPRESSION: 1. Mild lumbar spondylosis, stable from 05/02/2019. Reviewed, dictated and finalized at location E.
== END 2023-01-02 07:33 ==
LOC: MICIMG 07:33
PROVIDERS: PCP Family Medicine; Visit Provider Physical Medicine & Rehabilitation
DX: M54.12 Radiculopathy, cervical region (principal); M47.896 Other spondylosis, lumbar region
CPT/HCPCS: 72148

== ENCOUNTER 2023-01-11 10:12 | Outpatient (CLI) | payer BC, SELFPAY ==
--- NOTE | ~2023-01-11 | XR_ITS ---
EXAMINATION: XR hip BI 2V w AP pelvis DATE: 01/11/2023 10:37 INDICATION: Pain in unspecified hip. TECHNIQUE: An anteroposterior view of the pelvis and 2 views of each hip were obtained. COMPARISON: None. FINDINGS: Bone alignment is normal. No fracture. There is mild osteoarthritis of the hips characteriz ed by tiny osteophytes. No hip joint space narrowing. IMPRESSION: 1. Mild bilateral hip joint osteoarthritis. Reviewed, dictated and finalized at location E. USSION TEACHER
== END 2023-01-11 10:13 ==
PROVIDERS: PCP Physical Medicine & Rehabilitation; Visit Provider Physical Medicine & Rehabilitation
DX: M16.0 Bilateral primary osteoarthritis of hip (principal)
CPT/HCPCS: 73521

== ENCOUNTER 2023-01-23 07:26 | Outpatient (CLI) | payer BC, SELFPAY ==
--- NOTE | ~2023-01-23 | XR_ITS ---
XR cervical spine 4-5V 01/23/2023 08:02 Indication: Radiculopathy. Procedure: 6 views cervical spine including flexion/extension views Comparison: No prior studies for comparison. Findings: There is moderate disc narrowing and endplate hypertrophy at C5-6. Vertebral body heights a re maintained. No significant alteration of alignment with flexion/extension. There is mild retrolist hesis at C5-6. No prevertebral soft tissue abnormality. Odontoid process is normal. Lateral masses no rmally aligned. There is mild multilevel uncinate degenerative change. Impression: 1: Mild-moderate cervical spondylosis primarily involving C5-6. Recommend correlation with MRI cervic al spine as clinically indicated. Reviewed, dictated and finalized at location B. MAKEUP SYSTEM OPERATOR Impression: 1: Mild-moderate cervical spondylosis primarily involving C5-6. Recommend corre lation with MRI cervical spine as clinically indicated.
== END 2023-01-23 07:27 ==
PROVIDERS: PCP Family Medicine; Visit Provider Physician Assistant
DX: M47.22 Other spondylosis with radiculopathy, cervical region (principal); M50.322 Other cervical disc degeneration at C5-C6 level
CPT/HCPCS: 72050

== ENCOUNTER 2023-04-24 14:46 | Outpatient (CLI) | payer BC, SELFPAY ==
--- NOTE | ~2023-04-24 | CT_ITS ---
EXAMINATION: CT cervical spine wo con DATE: 04/24/2023 14:58 INDICATION: Other cervical disc displacement, unspecified. TECHNIQUE: Computed tomography (CT) of the cervical spine was performed without intravenous contrast. Automated exposure control and iterative reconstruction technique were employed. The dose-length pro duct was 233.64 mGy-cm. COMPARISON: Neck CT 08/21/2019 FINDINGS: There is 4 degrees dextrocurvature of cervical spine. There is kyphosis of cervical spine. There is 2 mm retrolisthesis of C5 on C6. Vertebral body heights are normal. There is mildly decrease d disc height at C4-C5, severely decreased disc height at C5-C6, and mildly decreased disc height at C6-C7. C1 ring is ununited posteriorly, a normal variant. The following disc levels are specifically discussed: C2-C3: There is no uncovertebral joint osteoarthritis. There is mild right and severe left facet join t osteoarthritis. There is mild left neural foraminal stenosis. There is no central canal stenosis. C3-C4: There is mild bilateral uncovertebral joint osteoarthritis. There is no facet joint osteoarthr itis. There is no neural foraminal stenosis. There is mild central canal stenosis. C4-C5: There is mild bilateral uncovertebral joint osteoarthritis. There is no facet joint osteoarthr itis. There is no neural foraminal stenosis. There is mild central canal stenosis. C5-C6: There is severe bilateral uncovertebral joint osteoarthritis. There is mild bilateral facet ned int osteoarthritis. There is moderate right and mild left neural foraminal stenosis. There is mild ce ntral canal stenosis. C6-C7: There is mild bilateral uncovertebral joint osteoarthritis. There is mild bilateral facet join t osteoarthritis. There is no neural foraminal stenosis. There is mild central canal stenosis. C7-T1: There is no uncovertebral joint osteoarthritis. There is severe right and mild left facet join t osteoarthritis. There is mild right neural foraminal stenosis. There is no central canal stenosis. IMPRESSION: 1. Severe spondylosis at C5-C6 and mild spondylosis at other levels. Reviewed, dictated and finalized at location E. [employer] [employer]
== END 2023-04-24 14:47 ==
LOC: MICIMG 14:46
PROVIDERS: PCP Family Medicine; Visit Provider Neurological Surgery
DX: M50.20 Other cervical disc displacement, unspecified cervical region (principal); M47.892 Other spondylosis, cervical region
CPT/HCPCS: 72125

== ENCOUNTER 2023-04-25 09:46 | Emergency (ER) | payer BC, SELFPAY ==
[2023-04-25 09:58] VITALS: BP 128/73; PULSE 72; RESP 18; TEMP 36.6; O2SAT 100
--- NOTE | 2023-04-25 10:02 | ED.GENADULT ---
HPI - General Adult General Chief complaint: Upper Respiratory Infection Stated complaint: Sore Throat, Earach,Congestion Source: patient, RN notes reviewed and old records reviewed Mode of arrival: ambulatory Limitations: no limitations History of Present Illness HPI narrative: 37-year-old male patient presents to [facility] with complaints sinus congestion, sore throat, bilateral ear pressure this started 2-3 days ago. Patient is not taking anything for symptoms. Patient denies cough, chest pain, shortness of breath, dizziness, weakness. Related Data Home Medications Medication Instructions Recorded Confirmed clonazepam 0.5 mg tablet 0.5 mg PO DAILY 02/21/23 04/25/23 methocarbamol 500 mg tablet 500 mg PO TID PRN Pain 02/21/23 04/25/23 naproxen 500 mg tablet 500 mg PO PRN PRN Pain 04/25/23 04/25/23 ubrogepant 100 mg tablet (Ubrelvy) mg 04/25/23 Allergies Allergy/AdvReac Type Severity Reaction Status Date / Time meperidine Allergy Severe Swelling Verified 04/25/23 10:05 of Lip/Tongue/Throat Review of Systems Constitutional: Constitutional: Reports no additional constitutional complaints, Denies body ache(s), Denies chills, Denies fatigue, Denies fever(s) and Denies headache(s) Eyes: Eyes: Reports no additional eye complaints and Denies blurry vision ENT: Reports system reviewed and no additional complaints, except as documented, Denies vertigo, Denies dizziness, Denies ear discharge, Reports otalgia, Denies facial pain, Denies headache(s), Reports nasal congestion, Denies nasal discharge, Denies sinus pain, Denies sinus pressure and Reports sore throat Cardiovascular: Cardiovascular: Reports no additional cardiovascular complaints, Denies chest pain, Denies chest pain at rest, Denies rapid heart rate and Denies dyspnea Respiratory: Respiratory: Reports no additional respiratory complaints, Denies chest congestion, Denies cough, Denies pain on inspiration, Denies pain with cough and Denies dyspnea Gastrointestinal: Gastrointestinal: Denies abdominal pain, Denies diarrhea, Denies nausea and Denies vomiting Integumentary/Breasts: Skin/Breast: Denies rash Neurologic: Reports system reviewed and no additional complaints, except as documented, Denies vertigo, Denies dizziness and Denies headache(s) Endocrine: Endocrine: Denies fatigue PMFSH Past Medical History Medical History History of anxiety Nasal turbinate hypertrophy Surgical History Surgical History H/O carpal tunnel repair Hx of nasal septoplasty Family History Family History Mother Hypertension Depression Cerebrovascular accident Father Depression Other Diabetes mellitus Family history of arthritis Family history of osteoporosis Social History Social History Smoking status: Former smoker Smoking end date: 03/06/14 Alcohol intake: former Substance use: never Do You Feel Safe in your Home?: Yes Lack of Transportation: No Lack of Food: Never True Current Housing: I Have Housing Concerned About Future Housing: No Difficulty Paying Gas/Electric Bills: No Difficulty Paying for Meds: No Currently Unemployed: No Education: High School Diploma/GED Difficulty w/ Childcare or Family Care: No Living arrangements: with family Occupation/Education: occupation Gender identity (if verbalized by the patient): Male Sexual Orientation (if Verbalized by the Patient): Straight or Heterosexual Comments At the time of my signature, I reviewed and agree with the nursing past medical, surgical, social, and family history. There is no relevant family history pertinent to the patient complaint. Exam Const: General: cooperative, healthy appearing, no acute distress and well nourished Nu
== END 2023-04-25 10:25 | disposition home or self-care (01) ==
PROVIDERS: Emergency Provider Registered Nurse; PCP Family Medicine
DX: B34.9 Viral infection, unspecified (principal); Z20.822 Contact with and (suspected) exposure to COVID-19; Z87.891 Personal history of nicotine dependence; F41.9 Anxiety disorder, unspecified
CPT/HCPCS: 87081; 87426; 87804; 87880; 99213; G0463

== ENCOUNTER 2023-05-30 09:19 | Outpatient (CLI) | payer BC, SELFPAY ==
--- NOTE | 2023-05-30 09:30 | ECG_ITS ---
Measurements Intervals [place] Rate: 77 P: 26 MN: 142 QRS: -7 QRSD: 106 T: 3 QT: 380 QTc: 431 Interpretive Statements SINUS RHYTHM POOR R WAVE PROGRESSION, ANTERIOR LEADS BORDERLINE ST-T WAVE ABNORMALITY- ANT/INF LEADS BASELINE ARTIFACT- I, II, III, AVR, AVL BORDERLINE ECG COMPARED TO ECG 07/12/2020 16:44:30 NO SIGNIFICANT CHANGES Electronically Signed On 05-30-2023 10:15:51 CDT by Dat Quinn D.O.
[2023-05-30 10:34] LABS: INR 1.1; Prothrombin Time 14.3 Seconds (11.1-14.7)
[2023-05-30 10:35] LABS: Partial Thromboplastin Time 32.5 Seconds (22.3-36.8)
[2023-05-30 11:06] LABS: Appearance Urine Clear (Clear); Color Urine Yellow (Yellow)
[2023-05-30 11:07] LABS: Add Urine Microscopic? NO; Blood Urine Negative (Negative); Glucose Urine UA Negative (Negative); Ketones Urine Trace mg/dL (Negative); Protein Urine Negative (Negative); pH Urine 5.5 (5.0-9.0)
[2023-05-30 11:08] LABS: Bilirubin Urine Negative (Negative); Leukocyte Esterase Ur Negative LEU/UL (Negative); Nitrate Urine Negative (Negative); Urobilinogen Urine 0.2 mg/dL (<2.0)
== END 2023-05-30 09:20 | disposition home or self-care (01) ==
PROVIDERS: PCP Family Medicine; Visit Provider Neurological Surgery
DX: M50.20 Other cervical disc displacement, unspecified cervical region (principal); Z01.818 Encounter for other preprocedural examination
CPT/HCPCS: 36415; 81003; 85610; 85730; 86850; 86900; 86901; 93005

== ENCOUNTER 2023-06-06 02:33 | Day surgery (SDC) | payer BC, SELFPAY ==
[2023-05-29 11:30] VITALS: BMI 31.0
--- NOTE | 2023-05-29 11:38 | PC.NURSE ---
Report to the Outpatient Waiting Room, entrance under the green pavilion located off [facility], at time 6:00 on date 06/06/23. Planned Procedure Time: 7:30. Time changes happen often and if your time is changed the preop area will call you the afternoon before. - You and your visitor will be asked to self-screen and do not enter if you have any COVID symptoms. - A mask is optional within the hospital at this time. Patients may have clear liquids (water, carbonated beverages, clear teas, apple juice) until 3 hours prior to surgery with a maximum of 20 ounces. - No food from midnight until time of surgery Take the following medications with a SIP of water the morning of surgery: CLONAZEPAM IF NEEDED, METHOCARBAMOL IF NEEDED, PREGABALIN DO NOT STOP ANY OF YOUR OTHER PRESCRIPTION MEDICATIONS PRIOR TO SURGERY ?EXCEPT THE FOLLOWING Medications to discontinue per physician: VITAMINS/SUPPLEMENTS Date to take last dose: 06/02/[address] POTTS REGARDING NAPROXEN. Please no make-up, nail syriac, hairspray, perfume, deodorant, or body powder the day of surgery. No jewelry (including any body piercings) or valuables the day of surgery, leave them at home. Please take a shower or bath the night before, or the morning of, surgery with an antibacterial soap. Wear comfortable, loose fitting clothing. - Jewelry must be removed prior to entering the operating room. Rings and piercings that are not removed may be cut off. - The hospital will not accept responsibility for valuables. - Please leave all valuables, including medications, at home the day of surgery. If you are going home after surgery, a licensed dedicated local truck driver must drive you home. - NO public transportation without another adult if you receive anesthesia. - We recommend that an adult stay with you for 24 hours following discharge. - We also recommend that you do not drive, make important decision, drink alcoholic beverages, or take any drugs that were not prescribed by your health care provider for at least 24 hours after your discharge time. Follow any additional instructions given to you from your surgeon. If you or anyone in your household have experienced Covid symptoms in the past week, please notify your surgeon or the nurse liaison at the phone number below for possible testing. Telephone instructions given to PT - HOLLY and asked if any additional questions and then verbalized understanding. Patient advised to call surgeon office or pre surgery nurse liaison [phone] if any additional questions.
--- NOTE | 2023-06-05 14:09 | WPDANESEPPF ---
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 Patient Data Age: 37 Gender: M Height: 1.6 m Weight: 79.4 kg Allergies Allergy/AdvReac Type Severity Reaction Status Date / Time meperidine Allergy Severe Swelling Verified 05/29/23 11:27 of Lip/Tongue/Throat Home Medications Medication Instructions Recorded Confirmed Type cyclobenzaprine 10 mg tablet 10 mg PO TID PRN muscle spasm #14 10/26/21 05/29/23 Rx tabs clonazepam 0.5 mg tablet 0.5 mg PO DAILY 02/21/23 05/29/23 History methocarbamol 500 mg tablet 500 mg PO TID PRN Pain 02/21/23 05/29/23 History naproxen 500 mg tablet 500 mg PO PRN PRN Pain 04/25/23 05/29/23 History ubrogepant 100 mg tablet (Ubrelvy) 100 mg PO ONCE 04/25/23 05/29/23 History cetirizine 10 mg tablet (Zyrtec) 10 mg PO DAILY 05/29/23 05/29/23 History fluticasone propionate 93 1 spray intranasal DAILY 05/29/23 05/29/23 History mcg/actuation breath activated aerosol (Xhance) multivitamin 1 tablet PO DAILY 05/29/23 05/29/23 History pregabalin 150 mg capsule 150 mg PO DAILY 05/29/23 05/29/23 History Patient hx anesthesia problems: none Family hx anesthesia problems: none Results Review: All pre-operative results and documents have been reviewed as part of the pre-operative evaluation. [facility] Past Medical History Medical History (Updated 06/05/23 @ 14:18 by Jak Moraes DO) History of anxiety Nasal turbinate hypertrophy Palpitations Surgical History Surgical History H/O carpal tunnel repair Hx of nasal septoplasty Family History Family History Mother Hypertension Depression Cerebrovascular accident Father Depression Other Diabetes mellitus Family history of arthritis Family history of osteoporosis Social History Social History (Updated 06/06/23 @ 06:55 by Jak Moraes DO) Years smoked: 15 Smoking status: Former smoker Tobacco type: cigarettes Smoking end date: 03/06/21 Alcohol intake: former Alcohol use details: NONE SINCE EARLY 2022 Substance use: never Substance use type: does not use Do You Feel Safe in your Home?: Yes Lack of Transportation: No Lack of Food: Never True Current Housing: I Have Housing Concerned About Future Housing: No Difficulty Paying Gas/Electric Bills: No Difficulty Paying for Meds: No Currently Unemployed: No Education: High School Diploma/GED Difficulty w/ Childcare or Family Care: No Living arrangements: with family Occupation/Education: occupation Gender identity (if verbalized by the patient): Male Sexual Orientation (if Verbalized by the Patient): Straight or Heterosexual Spiritual care concerns: No Anes - Eval Final PreProcedure Day of Procedure 06/05/23 14:09 Patient weight: obese Heart: regular rate and rhythm Lungs: clear to auscultation Airway: Mallampati scale class II and special considerations (Upper implants.) Neurological: alert and oriented Last oral intake: >/= 8 hours ASA classification: II Emergent: no Anesthetic plan: proceed Anesthesia type and monitoring: general and standard monitoring Results Review: All pre-operative results and documents have been reviewed as part of the pre-operative evaluation. Informed Consent: The patient's anesthetic plan and its attendant risks and benefits were discussed with the patient/family/POA. Questions were solicited and answers provided to the satisfaction of the patient/family/POA.
[2023-06-06] VITALS (10 sets, daily range): BP systolic 105–146; BP diastolic 65–92; PULSE 76–107; RESP 12–17; TEMP 36.2–36.8; O2SAT 98–100
--- NOTE | ~2023-06-06 | XR_ITS ---
EXAMINATION: XR fluoroscopy no charge DATE: 06/06/2023 09:35 INDICATION: C5-C6 herniated nucleus pulposis. TECHNIQUE: 4 intraoperative fluoroscopic views of the cervical spine were obtained. I was not present . Fluoroscopy exposure time was 22 seconds. COMPARISON: CT cervical spine 04/24/2023 FINDINGS: There are changes of disc arthroplasty at C5-C6. IMPRESSION: 1. C5-C6 disc arthroplasty. Reviewed, dictated and finalized at location A. IMPRESSION: 1. C5-C6 disc arthroplasty.
[2023-06-06] MEDS: LACTATED RINGERS 1,000 ML 30 ML IV CONT ×2 (06:30→09:53)
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
--- NOTE | 2023-06-06 08:01 | WPDHPUPDATE1 ---
History and Physical Update Update Date/Time: 06/06/23 08:01 History and Physical has been reviewed, including an updated exam of the patient. There are NO changes in the patient's condition. Risks, benefits, and alternatives have been discussed and questions answered. Patient agrees to proceed with procedure.
[2023-06-06] MEDS: ceFAZolin 2 GM/D5W 50 ML 2 GM/50 ML BAG IVPB (08:03)
[2023-06-06] MEDS: LIDO 1%/EPINEPHRINE 1:100,000 50 ML VIAL 10 ML INFILTRATE (08:25)
--- NOTE | 2023-06-06 09:47 | P.OP_ITS ---
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 The area of operation on the right side of the neck was examined, marked for incision, prepped and draped in routine sterile fashion. Incision was marked from the midline over the medial aspect of the sternocleidomastoid muscle and curvilinear transverse fashion 3 fingerbreadths above the sternal notch. This area was injected with 0.5% lidocaine with [id number] epinephrine. Intravenous antibiotics given prior to incision. Incision was made with a 10 blade scalpel down to the platysma muscle. The skin was undermined the platysma muscle was divided longitudinally with its fibers using Metzenbaum scissors. A plane was then dissected medial to the sternocleidomastoid muscle down to the anterior aspect of spine using the finger and Metzenbaum scissors. A verifying x-rays obtained to verify the level of operation. At the C5-6 level the longus coli muscle was dissected free of the anterior aspect of the spine using Bovie cautery. Gladbrook pins were placed in the C5 and C6 and distraction placed over the disc space. Shadow line retractor system was placed. Under microscopy the disc space was entered using a 15 blade scalpel coming along the margin of the bone above and below. Curved curette and pituitary rongeur were used to remove as much cartilaginous endplate disc material as possible down to the annulus and ligament posteriorly. Midas-Jeremy drill was used to bur down the anterior osteophyte. 4-0 curved curette was used to come to the annulus and ligament. A 2. Kerrison punch was used to remove annulus, ligament, posterior osteophytes and to complete a bony foraminotomy bilaterally including removing the disc herniation on the left. These maneuvers were performed until a nerve hook could be placed out each foramen to confirm microdecompression. The disc space was incised in a medium that is 15 x 12 mm cervical disc arthroplasty device was chosen. The Sizer was placed 1st and trajectories in noted. Cutter was then used off distraction to make heel cuts into the endplates on either side down to the appropriate depth. All this was done under fluoroscopy. The device was then placed also under fluoroscopy into the skill cuts down to the appropriate depth. Good position was confirmed in AP and lateral fluoroscopy. The wound was then copiously irrigated with bacitracin irrigation all bleeding stopped with bipolar and Bovie cautery and Gelfoam thrombin powder. The wound was then closed in layered fashion with 3-0 Vicryl interrupted sutures in the platysma muscle and in the dermis. The skin was closed with a running 4-0 Monocryl subcuticular stitch and dressed with Dermabond. The patient was allowed, from general anesthesia in the operating room and was taken to the recovery room in stable condition. There were no immediate complications of this operation. All counts were reported correct at the case. Blood loss was 25 cc. The patient was neurologically at his baseline postoperatively. Estimated Blood Loss 25 IV Fluids 1,000 Complications None Condition Stable Disposition PACU
[2023-06-06] MEDS: fentaNYL CITRATE INJ (*CRX) 100 MCG/2 ML VIAL 25 MCG IV PUSH ×2 (10:10→10:12)
[2023-06-06] MEDS: HYDROmorphone HCL INJ (*CRX) 1 MG/ML SYR 0.5 MG IV PUSH ×4 (10:13→10:39)
[2023-06-06] MEDS: ONDANSETRON INJ 4 MG/2 ML VIAL IV PUSH (10:29)
[2023-06-06] MEDS: MIDAZOLAM HCL (*CRX) 2 MG/2 ML VIAL 1 MG IV PUSH (10:34)
[2023-06-06] MEDS: oxyCODONE HCL (*CRX) 5 MG TAB IR PO (10:55)
[2023-06-06] MEDS: diphenhydrAMINE HCl CAP 25 MG CAPSULE PO (12:02)
== END 2023-06-06 12:08 | disposition home or self-care (01) ==
PROVIDERS: PCP Family Medicine; Visit Provider Neurological Surgery
PROC: 0RQ10ZZ Repair Cervical Vertebral Joint, Open Approach (ICD-10-PCS; CPT 22856; principal; 2023-06-06 07:30)
DX: M50.222 Other cervical disc displacement at C5-C6 level (principal); F41.9 Anxiety disorder, unspecified; Z87.891 Personal history of nicotine dependence; E66.9 Obesity, unspecified; Z68.32 Body mass index [BMI] 32.0-32.9, adult
CPT/HCPCS: 22856; 36415; 81003; 85610; 85730; 86850; 86900; 86901; 93005; 99199; A9270; J0330; J0690; J1100; J1170; J2250; J2405; J2704; J3010; J7120

== ENCOUNTER 2023-07-20 10:03 | Outpatient (CLI) | payer BC, SELFPAY ==
--- NOTE | ~2023-07-20 | MR_ITS ---
EXAMINATION: MR lumbar spine wo con DATE: 07/20/2023 10:26 INDICATION: Low back pain. Other disc displacement, unspecified. TECHNIQUE: Magnetic resonance imaging (MRI) of the lumbar spine was performed without intravenous con trast. Sequences included sagittal T2-weighted FSE, sagittal T2-weighted FS FSE, sagittal T1-weighted FSE, and axial T2-weighted FSE. COMPARISON: Lumbar spine MRI 01/02/2023 FINDINGS: There is 4 degrees levocurvature of lumbar spine. There is mild chronic anterior wedging of T11-L1 vertebral bodies. There is mildly decreased disc height at L1-L2 and L5-S1. The distal spinal cord signal intensity is normal. The conus medullaris is at L2. The following disc levels are specif ically discussed: L1-L2: The disc is bulging and has an annular fissure. There is mild bilateral facet joint osteoarthr itis. There is mild bilateral neural foraminal stenosis. There is mild central canal stenosis. L2-L3: The disc does not extend beyond the endplate margin. There is moderate bilateral facet joint o steoarthritis. There is no neural foraminal stenosis. There is no central canal stenosis. L3-L4: The disc does not extend beyond the endplate margin. There is moderate bilateral facet joint o steoarthritis. There is no neural foraminal stenosis. There is no central canal stenosis. L4-L5: There is a right foraminal extrusion. There is mild bilateral facet joint osteoarthritis. Ther e is mild right neural foraminal stenosis. There is no central canal stenosis. L5-S1: There is a central extrusion. There is moderate bilateral facet joint osteoarthritis. There is no neural foraminal stenosis. There is mild central canal stenosis. IMPRESSION: 1. Mild lumbar spondylosis, stable from 01/02/2023. Reviewed, dictated and finalized at location E.
== END 2023-07-20 10:04 ==
LOC: MICIMG 10:04
PROVIDERS: PCP Family Medicine; Visit Provider Neurological Surgery
DX: M50.20 Other cervical disc displacement, unspecified cervical region (principal); M47.896 Other spondylosis, lumbar region
CPT/HCPCS: 72148

== ENCOUNTER 2023-11-05 10:08 | Emergency (ER) | payer BC, SELFPAY ==
[2023-11-05 10:20] VITALS: BP 134/90; PULSE 84; RESP 18; TEMP 36.6; O2SAT 100
== END 2023-11-05 11:12 | disposition left against medical advice (07) ==
LOC: ANHED 11:12
PROVIDERS: PCP Family Medicine
DX: R20.0 Anesthesia of skin (principal); Z53.21 Procedure and treatment not carried out due to patient leaving prior to being seen by health care provider
CPT/HCPCS: 99199

== ENCOUNTER 2023-11-14 08:21 | Outpatient (CLI) | payer BC, SELFPAY ==
--- NOTE | ~2023-11-14 | XR_ITS ---
EXAMINATION: XR sacroiliac joints min 3V DATE: 11/14/2023 09:01 INDICATION: Multiple joint pain. TECHNIQUE: 3 views of the sacroiliac joints on 4 radiographs were obtained. COMPARISON: Pelvis radiograph 01/11/2023 FINDINGS: Bone alignment is normal. No fracture. There is mild osteoarthritis of the sacroiliac joint s characterized by tiny osteophytes. No evidence of inflammatory arthropathy. IMPRESSION: 1. Mild osteoarthritis of the sacroiliac joints. Reviewed, dictated and finalized at location A.
--- NOTE | ~2023-11-14 | XR_ITS ---
EXAMINATION: XR elbow LT min 3V, XR elbow RT min 3V DATE: 11/14/2023 09:01 INDICATION: Multiple joint pain TECHNIQUE: Anteroposterior, two oblique and lateral views of the left elbow were obtained. COMPARISON: None. FINDINGS: Alignment is normal at both elbows. No fracture. Minimal nonuniform joint space narrowing and tiny ma rginal osteophytes at the ulnotrochlear articulations of both elbows consistent with mild osteoarthri tis. No cortical erosions to suggest inflammatory arthritis. No joint effusions at either elbow. Soft tissues are unremarkable. IMPRESSION: 1. 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 Reviewed, dictated and finalized at location B. IMPRESSION: 1. 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
--- NOTE | ~2023-11-14 | XR_ITS ---
EXAMINATION: XR wrist RT 2V, XR hand LT 2V, XR hand RT 2V, XR wrist LT 2V DATE: 11/14/2023 09:01 INDICATION: Multiple joint pain at the bilateral hands and wrists TECHNIQUE: 1. Posteroanterior and lateral views of the left wrist were obtained. 2. Dorsal palmar and lateral views of the left hand were obtained. 3. Posteroanterior and lateral views of the right wrist were obtained. 4. Dorsal palmar and lateral views of the right hand were obtained. COMPARISON: None. FINDINGS: Left hand and wrist: Alignment of the hand and wrist is normal. No fracture identified. Joint spaces are normal. No erosio ns. No focal soft tissue swelling. Right hand and wrist: Alignment of the hand and wrist is normal. No fracture identified. Joint spaces are normal. No erosio ns. No focal soft tissue swelling. IMPRESSION: 1. Negative bilateral hand and wrist radiographs. Reviewed, dictated and finalized at location B. IMPRESSION: 1. Negative bilateral hand and wrist radiographs. IMPRESSION: 1. Negative bilateral hand and wrist radiographs. IMPRESSION: 1. Negative bilateral hand and wrist radiographs.
--- NOTE | ~2023-11-14 | XR_ITS ---
EXAMINATION: XR foot RT 2V, XR ankle RT 2V, XR ankle LT 2V, XR foot LT 2V DATE: 11/14/2023 09:01 INDICATION: Multiple joint pain TECHNIQUE: 1. Anteroposterior and lateral view of the left ankle were obtained. 2. Dorsoplantar and lateral views of the left foot were obtained. 3. Anteroposterior and lateral view of the right ankle were obtained. 4. Dorsoplantar and lateral views of the right foot were obtained. COMPARISON: None. FINDINGS: Left foot and ankle: Alignment of the foot and ankle is normal. No fracture. Joint spaces are well maintained. No erosions to suggest inflammatory arthritis. No ankle joint effusion. There is a tiny linear foreign body bay uring 1 mm in length and the soft tissues near the tuft of the left fifth distal phalanx. The soft ti ssues are otherwise unremarkable. Right foot and ankle: Alignment of the foot and ankle is normal. No fracture. Joint spaces are well maintained. No erosions to suggest inflammatory arthritis. Tiny heterotopic ossicle in the region of the deltoid ligament wh ich could represent sequela of chronic sprain. No ankle joint effusion. The soft tissues are unremark able. IMPRESSION: 1. Tiny heterotopic ossicle region of the right deltoid ligament which could represent sequela of chr onic sprain. 2. Tiny foreign body in the soft tissues near the tuft of the left distal phalanx.. Reviewed, dictated and finalized at location B. IMPRESSION: 1. Tiny heterotopic ossicle region of the right deltoid ligament which could re present sequela of chronic sprain. 2. Tiny foreign body in the soft tissues near the tuft of the left distal phala nx.. IMPRESSION: 1. Tiny heterotopic ossicle region of the right deltoid ligament which could re present sequela of chronic sprain. 2. Tiny foreign body in the soft tissues near the tuft of the left distal phala nx.. IMPRESSION: 1. Tiny heterotopic ossicle region of the right deltoid ligament which could re present sequela of chronic sprain. 2. Tiny foreign body in the soft tissues near the tuft of the left distal phala nx..
== END 2023-11-14 08:22 | disposition home or self-care (01) ==
PROVIDERS: PCP Family Medicine; Visit Provider Internal Medicine
DX: M25.50 Pain in unspecified joint (principal); R53.81 Other malaise; M53.3 Sacrococcygeal disorders, not elsewhere classified; M19.021 Primary osteoarthritis, right elbow; M19.022 Primary osteoarthritis, left elbow
CPT/HCPCS: 72202; 73080; 73100; 73120; 73600; 73620

== ENCOUNTER 2023-12-11 15:03 | Emergency (ER) | payer BC, SELFPAY ==
--- NOTE | 2023-12-11 15:11 | PC.NURSE ---
Pt states he is going to go to urgent care. A&Ox4
== END 2023-12-11 15:54 | disposition left against medical advice (07) ==
LOC: ANHED 15:37
PROVIDERS: PCP Family Medicine
DX: Z53.21 Procedure and treatment not carried out due to patient leaving prior to being seen by health care provider (principal)
CPT/HCPCS: 99199

== ENCOUNTER 2023-12-11 15:26 | Emergency (ER) | payer BC, SELFPAY ==
--- NOTE | 2023-12-11 15:29 | ED.EYEPROB ---
HPI - Eye Problem General Chief complaint: Eye Problems Stated complaint: EYE PAIN/LUMP BEHIND EYELID Source: patient and RN notes reviewed Mode of arrival: ambulatory Limitations: no limitations History of Present Illness HPI Narrative: Patient is a 38-year-old male who presents to the [facility] with complaints of left eye pain and redness. He states that this has been present for the last few days. 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 He states that his symptoms have not improved despite using the eyedrops as directed. He reports mild drainage from the left eye. Redness noted to the left eye. He denies visual disturbance. Related Data Home Medications Medication Instructions Recorded Confirmed clonazepam 0.5 mg tablet 0.5 mg PO DAILY 02/21/23 12/11/23 methocarbamol 500 mg tablet 500 mg PO TID PRN Pain 02/21/23 12/11/23 naproxen 500 mg tablet 500 mg PO PRN PRN Pain 04/25/23 12/11/23 cetirizine 10 mg tablet (Zyrtec) 10 mg PO DAILY 05/29/23 12/11/23 fluticasone propionate 93 1 spray intranasal DAILY 05/29/23 12/11/23 mcg/actuation breath activated aerosol (Xhance) multivitamin 1 tablet PO DAILY 05/29/23 12/11/23 pregabalin 150 mg capsule 150 mg PO DAILY 05/29/23 12/11/23 ubrogepant 100 mg tablet (Ubrelvy) 100 mg PO ONCE PRN Allergic 10/03/23 12/11/23 Symptoms duloxetine 20 mg capsule,delayed 20 mg PO DAILY 12/11/23 12/11/23 release hydroxychloroquine 200 mg tablet 200 mg PO BID 12/11/23 12/11/23 loteprednol etabonate 0.5 % eye 1 drp LEFT EYE BID 12/11/23 12/11/23 drops,suspension Allergies Allergy/AdvReac Type Severity Reaction Status Date / Time meperidine Allergy Severe Swelling Verified 10/03/23 09:14 of Lip/Tongue/Throat Review of Systems Review of Systems: CONSTITUTIONAL: Denies fever, chills, or sweats. EYES: Denies visual changes, but reports left eye redness and discharge. ENT: Denies otalgia and sore throat CARDIOVASCULAR: Denies chest pain, palpitations, or edema. RESPIRATORY: Denies cough or dyspnea. GASTROINTESTINAL: Denies abdominal pain, nausea, vomiting, or diarrhea. GENITOURINARY: Denies dysuria or hematuria. SKIN: Denies rash or itching. MUSCULOSKELETAL: Denies back pain, joint pain, or myalgia. NEUROLOGIC: Denies headache, numbness, or weakness. Pertinent positives per HPI. [facility] Past Medical History Medical History History of anxiety Nasal turbinate hypertrophy Palpitations Surgical History Surgical History H/O carpal tunnel repair Hx of nasal septoplasty Family History Family History Mother Hypertension Depression Cerebrovascular accident Father Depression Other Diabetes mellitus Family history of arthritis Family history of osteoporosis Social History Social History Years smoked: 15 Smoking status: Former smoker Tobacco type: cigarettes Smoking end date: 03/06/21 Alcohol intake: former Alcohol use details: NONE SINCE EARLY 2022 Substance use: never Substance use type: does not use Do You Feel Safe in your Home?: Yes Lack of Transportation: No Lack of Food: Never True Current Housing: I Have Housing Concerned About Future Housing: No Difficulty Paying Gas/Electric Bills: No Difficulty Paying for Meds: No Currently Unemployed: No Education: High School Diploma/GED Difficulty w/ Childcare or Family Care: No Living arrangements: with family Occupation/Education: occupation Gender identity (if verbalized by the patient): Male Sexual Orientation (if Verbalized by the Patient): Straight or Heterosexual Spiritual care concerns: No Comments At the time of my signature, I reviewed and agree with the nursing past medical, surgical, social, and fa
[2023-12-11 15:39] VITALS: BP 124/83; PULSE 69; RESP 16; TEMP 36.7; O2SAT 100
== END 2023-12-11 15:54 | disposition home or self-care (01) ==
PROVIDERS: Emergency Provider Nurse Practitioner; PCP Family Medicine
DX: H10.32 Unspecified acute conjunctivitis, left eye (principal); Z87.891 Personal history of nicotine dependence; F41.9 Anxiety disorder, unspecified
CPT/HCPCS: 99213; G0463

== ENCOUNTER 2024-02-13 07:25 | Outpatient (CLI) | payer BC, SELFPAY ==
--- NOTE | ~2024-02-13 | MR_ITS ---
EXAMINATION: MR pelvis wo con DATE: 02/13/2024 07:58 INDICATION: Hip pain TECHNIQUE: Magnetic resonance imaging (MRI) of the pelvis was performed without intravenous contrast. Sequences included axial T1-weighted FSE, axial T2-weighted FS FSE, coronal T1-weighted FSE, coronal T2-weighted FS FSE, sagittal T1-weighted FSE and sagittal T2-weighted FS FSE. COMPARISON: Radiographs dated 01/11/2023 FINDINGS: Bone alignment is normal. There is normal marrow signal throughout with no fracture, osteonecrosis or other pathologic marrow replacing process. 2 mm retrolisthesis L5 on S1. There is mild associated di sc height loss with annular fissure and disc extrusion with mild canal stenosis. Moderate facet osteo arthritis bilaterally at L4-5 and L5-S1. This contributes to moderate neural from stenosis on the lef t at L5-S1 and mild neural foraminal stenosis on the right at L5-S1 and bilaterally at L4-L5. There i s mild bilateral hip and sacroiliac osteoarthritis. No evident labral tear although sensitivity is lo wer on the larger [id number] images than on a dedicated small [id number] MRI of the hip. No hip joint effusion, bursitis or other abnormal fluid collections. Normal symmetric muscle bulk and signa l in the pelvis and visualized proximal thighs. The bilateral gluteal, iliopsoas, rectus femoris and proximal hamstring tendons are normal. Bladder, prostate and visualized portions of bowels including the appendix are normal. No pathologically enlarged pelvic or inguinal lymphadenopathy. IMPRESSION: 1. Mild bilateral hip and sacroiliac osteoarthritis. 2. Mild lower lumbar spondylosis. Reviewed, dictated and finalized at location A. [employer] DEVELOPER
== END 2024-02-13 07:26 | disposition home or self-care (01) ==
LOC: MICIMG 07:26
PROVIDERS: PCP Family Medicine; Visit Provider Physical Medicine & Rehabilitation Pain Medicine
DX: G57.20 Lesion of femoral nerve, unspecified lower limb (principal); M16.0 Bilateral primary osteoarthritis of hip; M53.3 Sacrococcygeal disorders, not elsewhere classified; M47.896 Other spondylosis, lumbar region
CPT/HCPCS: 72195

== ENCOUNTER 2024-05-24 10:44 | Outpatient (CLI) | payer BC, SELFPAY ==
--- NOTE | ~2024-05-24 | MR_ITS ---
EXAMINATION: MR lumbar spine wo/w con DATE: 05/24/2024 11:24 INDICATION: Lumbar radiculopathy. Low back pain. TECHNIQUE: Magnetic resonance imaging (MRI) of the lumbar spine was performed without and with 15 mL ProHance intravenous contrast. COMPARISON: Lumbar spine MRI 07/20/2023 FINDINGS: There is 6 degrees levocurvature of lumbar spine. There is mild chronic anterior wedging of T12 and L1 vertebral bodies. There is mildly decreased disc height at L1-L2 and L5-S1. The distal sp inal cord signal intensity is normal. The conus medullaris is at L2. The following disc levels are sp ecifically discussed: L1-L2: The disc is bulging and has an annular fissure. There is mild bilateral facet joint osteoarthr itis. There is mild bilateral neural foraminal stenosis. There is mild central canal stenosis. L2-L3: The disc does not extend beyond the endplate margin. There is mild bilateral facet joint osteo arthritis. There is no neural foraminal stenosis. There is no central canal stenosis. L3-L4: The disc is bulging. There is moderate bilateral facet joint osteoarthritis. There is mild alessandro ateral neural foraminal stenosis. There is no central canal stenosis. L4-L5: The disc is bulging. There is mild bilateral facet joint osteoarthritis. There is moderate rig ht and mild left neural foraminal stenosis. There is mild central canal stenosis. L5-S1: The disc is bulging and has an annular fissure. There is mild bilateral facet joint osteoarthr itis. There is mild bilateral neural foraminal stenosis. There is mild central canal stenosis. IMPRESSION: 1. Moderate right neural foraminal stenosis at L4-L5, worsened from 07/20/2023. Otherwise mild lumbar spondylosis. Reviewed, dictated and finalized at location []
== END 2024-05-24 10:45 | disposition home or self-care (01) ==
LOC: MICIMG 10:45
PROVIDERS: PCP Family Medicine; Visit Provider Physical Medicine & Rehabilitation Pain Medicine
DX: M47.26 Other spondylosis with radiculopathy, lumbar region (principal)
CPT/HCPCS: 72158; A9579